=== PATIENT | female | born 1960 | race Caucasian/White ===

== ENCOUNTER 2019-12-22 11:39 | Emergency (ER) | payer OTHER ==
[~2019-12-22] VITALS: Ht 154.9 cm; Wt 70.5 kg
[2019-12-22 11:50] VITALS: BP 133/69
[2019-12-22] MEDS ORDERED: HYDR-3965 PO (13:00)
== END 2019-12-22 13:43 | disposition home or self-care (01) ==
LOC: ER 11:39
DX: S82.831A Other fracture of upper and lower end of right fibula, initial encounter for closed fracture (principal); X50.1XXA Overexertion from prolonged static or awkward postures, initial encounter; Y93.89 Activity, other specified; Y92.89 Other specified places as the place of occurrence of the external cause; Y99.9 Unspecified external cause status
CPT/HCPCS: 29515; 73610; 99284